=== PATIENT | male | born 1960 ===

== ENCOUNTER 2016-12-13 19:50 | Emergency (ER) | payer SELFPAY ==
[2016-12-13 20:27] VITALS: TEMP 97.6; O2SAT 95
--- NOTE | 2016-12-13 22:15 | C.PDOC ---
Time Seen by Provider: 12/13/16 20:32 Chief Complaint (Nursing): Upper Extremity Problem/Injury History Per: Patient Onset/Duration Of Symptoms: Days (about 1 week), Waxing/Waning Current Symptoms Are (Timing): Still Present Quality Of Discomfort: "Pain" Severity: Moderate Exacerbating Factor(s): Movement Additional History Per: Prior Records Past Medical History Reviewed: Historical Data, Nursing Documentation, Vital Signs Vital Signs: Last Vital Signs Temp 97.6 F 12/13/16 20:24 Pulse 68 12/13/16 20:24 Resp 20 12/13/16 20:24 BP 179/91 H 12/13/16 20:24 Pulse Ox 95 12/13/16 20:24 - Medical History PMH: No Chronic Diseases Surgical History: No Surg Hx Family History: States: Unknown Family Hx - Social History Hx Tobacco Use: No Hx Alcohol Use: No Hx Substance Use: No - Immunization History Hx Tetanus Toxoid Vaccination: No Hx Influenza Vaccination: No Hx Pneumococcal Vaccination: No Review Of Systems Except As Marked, All Systems Reviewed And Found Negative. Constitutional: Negative for: Fever, Weakness ENT: Negative for: Throat Pain Cardiovascular: Negative for: Chest Pain Respiratory: Negative for: Shortness of Breath Gastrointestinal: Negative for: Nausea, Vomiting, Abdominal Pain Musculoskeletal: Positive for: Neck Pain (left), Shoulder Pain (left), Arm Pain (left). Negative for: Back Pain Skin: Negative for: Rash Neurological: Negative for: Weakness, Numbness, Seizures, Altered Mental Status , Headache Physical Exam - Physical Exam Appears: Non-toxic, No Acute Distress Skin: Normal Color, Warm, Dry, No Rash Head: Atraumatic, Normacephalic Eye(s): bilateral: Normal Inspection, PERRL, EOMI Neck: Normal ROM, No Midline Cervical Tenderness, Paracervical Tenderness (left) , No Step Off Deformity, Supple Chest: Symmetrical, No Deformity Cardiovascular: Rhythm Regular Respiratory: Normal Breath Sounds, No Accessory Muscle Use Gastrointestinal/Abdominal: Soft, No Tenderness Back: No Vertebral Tenderness Extremity: Normal ROM, No Tenderness, No Deformity, No Swelling Extremity: Bilateral: Normal Color And Temperature Pulses: Left Radial: Normal Neurological/Psych: Oriented x3, Normal Speech, Normal Cognition, Normal Motor, Normal Sensation ED Course And Treatment O2 Sat by Pulse Oximetry: 95 Pulse Ox Interpretation: Normal - Other Rad Left shoulder x-rays X-Ray: Interpreted by Me, Viewed By Me Interpretation: No acute fx or dislocation. C-spine x-rays X-Ray: Interpreted by Me, Viewed By Me Interpretation: No acute fx or subluxation. Progress Note: Pt was placed in a soft cervical collar. Reassessment Condition: Improved Disposition Counseled Patient/Family Regarding: Studies Performed, Diagnosis, Need For Followup, Rx Given - Disposition Referrals: [facility] [Outside] Disposition: HOME/ ROUTINE Disposition Time: 22:15 Condition: IMPROVED Additional Instructions: Follow up in the clinic within 1 week to repeat your blood pressure and for further evaluation and treatment. Return to the ER if you develop weakness, numbness, chest pain, shortness of breath, worsening of symptoms or if you have any other concerns. Prescriptions: Naproxen [Naprosyn] 1 tab PO BID PRN #20 tab PRN Reason: Pain Instructions: Cervical Radiculopathy (ED) Forms: [employer] (Lao) Print Language: LAO - Clinical Impression Clinical Impression: Left cervical radiculopathy, Elevated blood pressure reading
[2016-12-13 22:21] VITALS: BP 170/80; PULSE 80; RESP 14
--- NOTE | 2016-12-14 10:15 | RAD ---
PROCEDURE: Cervical Spine Radiographs. HISTORY: Pain. COMPARISON: None. FINDINGS: BONES: There is normal alignment of the cervical vertebral bodies. There is straightening of the cervical spine with loss of normal cervical lordosis. Vertebral height is normal. There is no acute fracture or traumatic anterior listhesis. The craniocervical junction is normal. The atlantoaxial joint is normal. DISC SPACES: There is mild degenerative disc disease at C5-6 and C6-7 with reduced disc heights, anterior osteophytes and facet arthropathy, worse at C6-7. SOFT TISSUES: The paraspinous soft tissues are normal. No prevertebral soft tissue swelling. OTHER FINDINGS: None. IMPRESSION: No acute fracture or traumatic anterior listhesis. Straightening of the cervical spine may be positional or related to muscle spasm. Mild degenerative disc disease at C5-6 and C6-7, worse at C6-7.
--- NOTE | 2016-12-14 10:23 | RAD ---
PROCEDURE: Radiographs of the Left Shoulder HISTORY: Left shoulder pain COMPARISON: No prior. FINDINGS: BONES: No acute fracture. Bone alignment is normal. JOINTS: There is type 1 acromioclavicular separation and old avulsion fracture deformity in the distal clavicle. There is mild degenerative osteoarthrosis in the glenohumeral joint with reduced joint space and subarticular cystic changes. SOFT TISSUES: Normal. OTHER FINDINGS: None. IMPRESSION: No acute fracture or dislocation. Type 1 acromioclavicular separation and old avulsion fracture deformity in the distal clavicle. Mild degenerative osteoarthrosis in the glenohumeral joint.
== END 2016-12-13 22:23 | disposition home or self-care (01) ==
LOC: C.ER 19:50
DX: M54.12 Radiculopathy, cervical region (principal); R03.0 Elevated blood-pressure reading, without diagnosis of hypertension
CPT/HCPCS: 72040; 73030; 96372; 99284; J1885